=== PATIENT | female | born 1985 | race Caucasian/White ===

== ENCOUNTER 2021-10-18 19:45 | Inpatient (IN) | payer BC ==
[2021-10-18 20:21] VITALS: BMI 26.6
[2021-10-18] MEDS ORDERED: hydrALAZINE 20 MG/ML VIAL SLOW IVP PRN (20:43)
[2021-10-18] MEDS ORDERED: Acetaminophen 500 MG TAB PO PRN (20:45)
[2021-10-18 21:22] LABS: #Eosinphils 0.1 10x3/uL (0.0-0.5); #Monocytes 0.6 10x3/uL (0.0-1.1); #Neutrophils 5.7 10x3/uL (1.5-8.4); %Basophils 0.5 % (0.0-2.0); %Eosinophils 1.5 % (0.0-6.0); %Monocytes 7.2 % (0.0-10.0); %Neutrophils 67.3 % (40.0-75.0); Mean Corpuscular HGB CONC 33.5 g/dL (32.0-36.0); Mean Corpuscular Volume 89.4 fl (81.6-98.3); Mean Platelet Volume 12.4 fl (7.4-10.4); Platelet Count 142 10x3/uL (150-450); RBC Distribution Width 12.7 % (11.5-14.5); Red Blood Cell (RBC) Count 3.67 10x6/uL (3.90-5.03); White Blood Cell (WBC) Count 8.4 10x3/uL (3.5-10.5)
[2021-10-18 21:25] LABS: Creatinine, Urine 33.9 mg/dL (47-110)
[2021-10-18 21:32] LABS: ALT (SGPT) 22 U/L (8-55); AST (SGOT) 26 U/L (5-34); Albumin 2.8 g/dL (3.5-5.0); Alkaline Phosphatase 423 U/L (40-110); Anion Gap 11 mmol/L (10-20); BUN (Urea Nitrogen) 14 mg/dL (7.0-18.7); Bilirubin, Total 0.2 mg/dL (0.2-1.2); Calc. Creatinine Clearance 128 mL/min (70-130); Calcium 8.8 mg/dL (7.8-10.44); Carbon Dioxide 20 mmol/L (22-29); Chloride 110 mmol/L (98-107); Globulin 3.1 g/dL (2.4-3.5); Glucose 79 mg/dL (70-105); Potassium 3.9 mmol/L (3.5-5.1); Protein, Total 5.9 g/dL (6.0-8.3); Sodium 137 mmol/L (136-145); Uric Acid 3.6 mg/dL (2.6-6.0)
[2021-10-19] MEDS ORDERED: Promethazine HCl 25 MG/ML VIAL IM PRN ×3 (01:15→20:38)
[2021-10-19] MEDS ORDERED: Ondansetron PF 4 MG/2 ML Vial IVP PRN ×3 (01:15→20:38)
[2021-10-19] MEDS ORDERED: hydrALAZINE 20 MG/ML VIAL SLOW IVP PRN ×3 (01:15→08:56)
[2021-10-19 03:48] LABS: Hemoglobin 10.7 g/dL (12.0-15.5); Mean Corpuscular HGB CONC 32.7 g/dL (32.0-36.0); Mean Corpuscular Hemoglobin 29.5 pg (27.0-33.0); Mean Corpuscular Volume 90.1 fl (81.6-98.3); Platelet Count 124 10x3/uL (150-450); RBC Distribution Width 12.7 % (11.5-14.5); Red Blood Cell (RBC) Count 3.63 10x6/uL (3.90-5.03); White Blood Cell (WBC) Count 7.5 10x3/uL (3.5-10.5)
[2021-10-19 04:15] LABS: ALT (SGPT) 20 U/L (8-55); AST (SGOT) 24 U/L (5-34); Albumin 2.6 g/dL (3.5-5.0); Alkaline Phosphatase 445 U/L (40-110); Anion Gap 12 mmol/L (10-20); BUN (Urea Nitrogen) 14 mg/dL (7.0-18.7); Bilirubin, Total 0.2 mg/dL (0.2-1.2); Calc. Creatinine Clearance 129 mL/min (70-130); Calcium 8.4 mg/dL (7.8-10.44); Carbon Dioxide 18 mmol/L (22-29); Chloride 110 mmol/L (98-107); Glucose 82 mg/dL (70-105); Potassium 3.8 mmol/L (3.5-5.1); Protein, Total 5.6 g/dL (6.0-8.3); Sodium 136 mmol/L (136-145); Uric Acid 4.6 mg/dL (2.6-6.0)
[2021-10-19] MEDS ORDERED: Levothyroxine Sodium 50 MCG TAB PO SCH (06:00)
[2021-10-19] MEDS ORDERED: Acetaminophen 500 MG TAB PO PRN ×2 (07:48→08:56)
[2021-10-19] MEDS ORDERED: Bupivacaine 0.25% HCL 30 ML VIAL ONE (08:00)
[2021-10-19] MEDS ORDERED: Calcium Gluc 4.6 MEQ/10 ML (100 MG/ML) SLOW IVP PRN (08:56)
[2021-10-19] MEDS ORDERED: Magnesium Sulfate 20 GM/WATER 500 ML BAG IVPB SCH (08:56)
[2021-10-19] MEDS ORDERED: diphenhydrAMINE 50 MG/ML VIAL IVP PRN ×2 (08:56→20:38)
[2021-10-19] MEDS ORDERED: Lorazepam 2 MG/ML VIAL SLOW IVP PRN (08:56)
[2021-10-19] MEDS ORDERED: Fentanyl 100 MCG/2 ML VIAL SLOW IVP PRN (08:56)
[2021-10-19] MEDS ORDERED: Magnesium Sulfate 20 gm/500 ml 20 GM/500 ML BAG IVPB SCH (08:56)
[2021-10-19] MEDS ORDERED: Labetalol HCl 100 MG/20 ML VIAL SLOW IVP PRN ×2 (08:56)
[2021-10-19] MEDS ORDERED: Prenatal Vitamin 1 TAB PO SCH (09:00)
[2021-10-19] MEDS ORDERED: Magnesium Sulfate 20 gm/500 ml 4 GM/100 ML BAG IVPB ONE (09:30)
[2021-10-19] MEDS: Lactated Ringer's 1,000 ML IV SCH (10:12)
[2021-10-19 10:37] LABS: Hep B Surf Ag Non-Reactive S/CO (NonReactive)
[2021-10-19 10:37] LABS: Syphilis Antibody Nonreactive (Nonreactive); Syphilis Antibody Index 0.06 S/CO (<1.00 Non-Reactive)
[2021-10-19 10:43] LABS: HBSAg Index 0.19 S/CO (0-0.99)
[2021-10-19] MEDS ORDERED: Misoprostol 100 MCG TAB ONE (10:47)
[2021-10-19] MEDS ORDERED: Ibuprofen 800 MG TAB PO PRN (10:55)
[2021-10-19] MEDS ORDERED: Diphenoxylate HCl/Atropine Tablet PO PRN (10:55)
[2021-10-19] MEDS ORDERED: Lidocaine 1% (PF) 30 ML VIAL SC PRN (10:55)
[2021-10-19] MEDS ORDERED: Carboprost 250 MCG/ML AMP IM PRN (10:55)
[2021-10-19] MEDS ORDERED: Misoprostol 200 MCG TAB PR PRN (10:55)
[2021-10-19] MEDS ORDERED: Misoprostol 100 MCG TAB VAG SCH (11:15)
[2021-10-19 15:04] LABS: SARS-CoV-2 NAA Rapid Test Not Detected (NotDetected)
[2021-10-19] MEDS: NS w/ Oxytocin 30 units 500 ML IV SCH ×2 (15:11→23:20)
[2021-10-19] MEDS ORDERED: NS w/ Oxytocin 30 units 500 ML IV SCH (19:30)
[2021-10-19] MEDS ORDERED: Fentanyl 2 mcg/Bup 0.1% Cadd 100 ML ONE (19:50)
[2021-10-19] MEDS ORDERED: Acetaminophen 325 MG TAB PO PRN (20:38)
[2021-10-19] MEDS ORDERED: Naloxone HCl 0.4 mg/ml Vial IVP PRN ×2 (20:38)
[2021-10-19] MEDS ORDERED: Lactated Ringer's 500 ML IV PRN (20:38)
[2021-10-19] MEDS ORDERED: Hydrocerin (Eucerin) Cream 120 gm Jar TOP PRN (20:38)
[2021-10-19] MEDS ORDERED: ePHEDrine Sulfate 50 MG/10 ML VIAL SLOW IVP PRN (20:38)
[2021-10-19] MEDS ORDERED: Fentanyl 2 mcg/Bupivacaine 0.1% Cassette 100 ML EPIDURAL SCH (20:45)
[2021-10-19] MEDS ORDERED: Communication Order-Pharmacy FS SCH (20:45)
[2021-10-20] MEDS ORDERED: Preparation H Ointment 28 GM TUBE PR PRN (01:41)
[2021-10-20] MEDS ORDERED: HYDROcodone/Acetaminophen 5/325 mg Tablet PO PRN ×2 (01:41)
[2021-10-20] MEDS ORDERED: Ondansetron PF 4 MG/2 ML Vial IVP PRN (01:41)
[2021-10-20] MEDS ORDERED: Lanolin Ointment 7 GM TUBE TOP PRN (01:41)
[2021-10-20] MEDS ORDERED: Milk Of Magnesia 30 ML UDCUP PO PRN (01:41)
[2021-10-20] MEDS ORDERED: Bisacodyl 10 MG SUPP PR PRN (01:41)
[2021-10-20] MEDS ORDERED: Benzocaine-Menthol 82.5 ML CAN TOP PRN (01:41)
[2021-10-20] MEDS ORDERED: Calcium Gluconate 4.6 MEQ in Sodium Chloride 0.9% 100 ML IVPB PRN (01:41)
[2021-10-20] MEDS ORDERED: Misoprostol 200 MCG TAB VAG PRN (01:41)
[2021-10-20] MEDS ORDERED: Magnesium Sulfate 20 gm/500 ml 20 GM/500 ML BAG IVPB SCH (02:00)
[2021-10-20 04:54] LABS: Hemoglobin 10.7 g/dL (12.0-15.5); Mean Corpuscular HGB CONC 32.7 g/dL (32.0-36.0); Mean Corpuscular Hemoglobin 29.5 pg (27.0-33.0); Mean Corpuscular Volume 90.1 fl (81.6-98.3); Mean Platelet Volume 12.9 fl (7.4-10.4); Platelet Count 111 10x3/uL (150-450); RBC Distribution Width 12.9 % (11.5-14.5); Red Blood Cell (RBC) Count 3.63 10x6/uL (3.90-5.03); White Blood Cell (WBC) Count 10.4 10x3/uL (3.5-10.5)
[2021-10-20] MEDS: Ibuprofen 600 MG TAB PO SCH ×2 (14:39→21:14)
[2021-10-20] MEDS: Docusate 100 MG CAP PO SCH ×2 (21:13→23:18)
[2021-10-20] MEDS: Acetaminophen 325 MG TAB PO SCH (21:13)
[2021-10-20] MEDS: Prenatal Vitamin 1 TAB PO SCH (21:14)
[2021-10-20] MEDS: Ibuprofen 800 MG TAB PO SCH (21:53)
[2021-10-21] MEDS: Acetaminophen 325 MG TAB PO SCH ×3 (02:06→19:16)
[2021-10-21] MEDS: Lactated Ringer's 1,000 ML IV SCH ×2 (05:29→05:31)
[2021-10-21] MEDS: Ibuprofen 800 MG TAB PO SCH ×3 (05:57→21:09)
[2021-10-21] MEDS ORDERED: PATIENT'S HOME MEDICATION PO SCH (06:00)
[2021-10-21] MEDS: Docusate 100 MG CAP PO SCH ×2 (11:13→21:11)
[2021-10-21] MEDS: Prenatal Vitamin 1 TAB PO SCH (11:13)
[2021-10-22] MEDS: Acetaminophen 325 MG TAB PO SCH ×2 (02:22→10:35)
[2021-10-22] MEDS: Ibuprofen 800 MG TAB PO SCH (06:58)
[2021-10-22] MEDS ORDERED: Carboprost 250 MCG/ML AMP ONE (10:04)
[2021-10-22] MEDS ORDERED: Methylergonovine 0.2 MG/ML VIAL ONE (10:04)
[2021-10-22] MEDS ORDERED: Misoprostol 200 MCG TAB ONE (10:04)
[2021-10-22] MEDS: Docusate 100 MG CAP PO SCH (10:34)
[2021-10-22] MEDS: Prenatal Vitamin 1 TAB PO SCH (10:35)
[2021-10-22 11:53] VITALS: BP 158/95; TEMP 98
== END 2021-10-22 14:45 | disposition home or self-care (01) | DRG 807 ==
LOC: CSHLD/OP 19:45 → CSHLD 10-19 19:38 → CSHPP 10-20 22:25
PROVIDERS: ADMIT Student in an Organized Health Care Education/Training Program; ATTEND Student in an Organized Health Care Education/Training Program
PROC: 10E0XZZ Delivery of Products of Conception, External Approach (ICD-10-PCS; principal; 2021-10-19)
PROC: 3E033VJ Introduction of Other Hormone into Peripheral Vein, Percutaneous Approach (ICD-10-PCS; 2021-10-19)
PROC: 10907ZC Drainage of Amniotic Fluid, Therapeutic from Products of Conception, Via Natural or Artificial Opening (ICD-10-PCS; 2021-10-19)
PROC: 3E0234Z Introduction of Serum, Toxoid and Vaccine into Muscle, Percutaneous Approach (ICD-10-PCS; 2021-10-19)
DX: O14.14 Severe pre-eclampsia complicating childbirth (principal); Z37.0 Single live birth; Z3A.36 36 weeks gestation of pregnancy; Z20.822 Contact with and (suspected) exposure to COVID-19; O36.5930 Maternal care for other known or suspected poor fetal growth, third trimester, not applicable or unspecified; O75.89 Other specified complications of labor and delivery; K21.9 Gastro-esophageal reflux disease without esophagitis; E03.9 Hypothyroidism, unspecified; O99.62 Diseases of the digestive system complicating childbirth; O99.284 Endocrine, nutritional and metabolic diseases complicating childbirth; M34.89 Other systemic sclerosis; O99.02 Anemia complicating childbirth; D64.9 Anemia, unspecified; O60.14X0 Preterm labor third trimester with preterm delivery third trimester, not applicable or unspecified; O26.893 Other specified pregnancy related conditions, third trimester; Z67.41 Type O blood, Rh negative
CPT/HCPCS: 36415; 80053; 82570; 84156; 84550; 85025; 85027; 86780; 86850; 86870; 86900; 86901; 87340; 88307; 99285; J2590; J3475; S0020; U0002